=== PATIENT | male | born 1980 | race Caucasian/White ===

== ENCOUNTER 2017-09-08 10:45 | Emergency (ER) | payer BC ==
[2017-09-08 10:59] VITALS: BP 133/85; PULSE 82; TEMP 98.6; BMI 23.9
[2017-09-08] MEDS ORDERED: DIPHTH,PERTUSS(ACELL),TET 0.5 ML DISP.SYRIN IM ONE (11:11)
--- NOTE | 2017-09-08 11:11 | PDOC ---
History of Present Illness - General Chief Complaint: Injury Stated Complaint: LEFT 2ND FINGER INJURY W/ WOUND Time Seen by Provider: 09/08/17 11:03 - History of Present Illness Initial Comments: 09/08/17 11:55 Plan: Finger injury History of present illness: Patient cut his finger last night on his car. Sustained a transverse laceration on the radial aspect of the left index finger , just proximal to the DIPJ. Denies distal numbness tingling or limited motion of the fingertip. Review of systems: As above. In addition, no other injuries Past medical history: Healthy male, no significant medical or surgical problems past or present, no medications, no diabetes Social/family history reviewed and noncontributory Physical exam: Alert and oriented well-developed well-nourished no acute distress cooperative Afebrile, vital signs normal Left index finger: 1 cm transverse laceration as noted above. This involves the skin only, with no deep structures involved and no punctures. Sensation is intact to the distal pulp to 2 point discrimination. There is full extension against resistance, and full flexion of the DIP joint against resistance as well. Impression: Superficial laceration, old Plan: Debridement clean and dress watch for infection and follow-up as necessary Past History - Past Medical History Allergies/Adverse Reactions: Allergies Allergy/AdvReac Type Severity Reaction Status Date / Time bupropion HCl [From [facility]yban] Allergy Swelling Verified 09/08/17 10:48 Home Medications: Ambulatory Orders NK [No Known Home Medication] 09/08/17 Other medical history: DENIES - Suicide/Smoking/Psychosocial Hx Smoking History: Current every day smoker Have you smoked in the past 12 months: Yes Number of Cigarettes Smoked Daily: 1 Information on smoking cessation initiated: Yes 'Breaking Loose' booklet given: 09/08/17 Hx Alcohol Use: (occasional) Drug/Substance Use Hx: No Substance Use Type: None Hx Substance Use Treatment: No *Physical Exam - Vital Signs Last Vital Signs Temp Pulse Resp BP Pulse Ox 98.6 F 82 18 133/85 98 09/08/17 10:45 09/08/17 10:45 09/08/17 10:45 09/08/17 10:45 09/08/17 10:45 Medical Decision Making - Medical Decision Making 09/08/17 11:59 Procedure note: Debridement and laceration repair Digital block 1% lidocaine, good anesthesia Sharp debridement of the wound edges, black particulate matter removed. Thoroughly scrubbed and irrigated with saline. Bleeding controlled. Wound edges adequately approximated without sutures or Steri-Strips necessary Bacitracin, 2 x 2, tube gauze Wound care instructions Recheck if sign of infection Tetanus booster. *DC/Admit/Observation/Transfer Diagnosis at time of Disposition: Finger laceration Qualifiers: Encounter type: initial encounter Finger: index finger Damage to nail status: without damage Foreign body presence: without foreign body Laterality: left Qualified Code(s): S61.211A - Laceration without foreign body of left index finger without damage to nail, initial encounter - Discharge Dispostion Disposition: HOME Condition at time of disposition: Improved Admit: No - Patient Instructions Printed Discharge Instructions: DI for Laceration Repair -- Finger Additional Instructions: Recheck immediately if sign of infection. Otherwise dressed with bacitracin and keep covered until completely healed.
== END 2017-09-08 11:56 | disposition home or self-care (01) ==
LOC: FER 10:45
PROC: 3E0234Z Introduction of Serum, Toxoid and Vaccine into Muscle, Percutaneous Approach (ICD-10-PCS; principal; 2017-09-08)
DX: S61.211A Laceration without foreign body of left index finger without damage to nail, initial encounter (principal); W22.09XA Striking against other stationary object, initial encounter; Y93.89 Activity, other specified; Y92.89 Other specified places as the place of occurrence of the external cause
CPT/HCPCS: 90715; 99283-25

== ENCOUNTER 2018-10-09 06:59 | Emergency (ER) | payer BC ==
[2018-10-09 07:17] VITALS: BP 148/77; PULSE 88; TEMP 98.6; BMI 23.0
--- NOTE | 2018-10-09 07:37 | PDOC ---
History of Present Illness - General History Source: Patient Exam Limitations: No Limitations <Laurent Chavez - Last Filed: 10/09/18 07:37> <Nicho Bell - Last Filed: 10/09/18 15:56> - General Chief Complaint: Sore Throat Stated Complaint: WEAK, SORE THROAT Past History - Past Medical History COPD: No CHF: No - Immunization History Immunization Up to Date: Yes - Suicide/Smoking/Psychosocial Hx Smoking History: Current every day smoker Have you smoked in the past 12 months: Yes Number of Cigarettes Smoked Daily: 5 Information on smoking cessation initiated: No 'Breaking Loose' booklet given: 09/08/17 Hx Alcohol Use: No Drug/Substance Use Hx: No Substance Use Type: None Hx Substance Use Treatment: No <Laurent Chavez - Last Filed: 10/09/18 07:37> <Nicho Bell - Last Filed: 10/09/18 15:56> - Past Medical History Allergies/Adverse Reactions: Allergies Allergy/AdvReac Type Severity Reaction Status Date / Time bupropion HCl [From [facility]] Allergy Swelling Verified 09/08/17 10:48 Home Medications: Ambulatory Orders NK [No Known Home Medication] 09/08/17 *Physical Exam - Vital Signs Last Vital Signs Temp Pulse Resp BP Pulse Ox 98.6 F 88 15 148/77 99 10/09/18 07:16 10/09/18 07:16 10/09/18 07:16 10/09/18 07:16 10/09/18 07:16 <Laurent Chavez - Last Filed: 10/09/18 07:37> - Vital Signs Last Vital Signs Temp Pulse Resp BP Pulse Ox 98.6 F 88 15 148/77 99 10/09/18 07:16 10/09/18 07:16 10/09/18 07:16 10/09/18 07:16 10/09/18 08:32 <Nicho Bell - Last Filed: 10/09/18 15:56> *DC/Admit/Observation/Transfer <Laurent Chavez - Last Filed: 10/09/18 07:37> <Nicho Bell - Last Filed: 10/09/18 15:56> Diagnosis at time of Disposition: Influenza - Discharge Dispostion Disposition: HOME Condition at time of disposition: Stable - Referrals Referrals: Tee Lobo MD [Primary Care Provider] - - Patient Instructions Printed Discharge Instructions: Influenza Additional Instructions: Alternate Tylenol Motrin as needed for fever. Drink plenty of fluids. Try to stay away from other people especially young old immunocompromise. Call occupational health before returning to work. - Post Discharge Activity Forms/Work/School Notes: Back to Work
[2018-10-09 08:28] LABS: THROAT:GRP A STREP ANTIGEN Negative
--- NOTE | 2018-10-09 08:31 | PDOC ---
Attending Attestation - Resident Resident Name: Laurent Chavez - ED Attending Attestation I have performed the following: I have examined & evaluated the patient, The case was reviewed & discussed with the resident, I agree w/resident's findings & plan, Exceptions are as noted - HPI HPI: 10/09/18 15:16 Reviewed Residents HPI - Physicial Exam PE: 10/09/18 15:16 Reviewed Residents PE - Medical Decision Making 10/09/18 15:18 37 years old no significant past medical history presents with signs and symptoms of influenza-like illness. Well-appearing normal vital's tolerating by mouth Influenza positive. 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 Patient has had symptoms for greater than 48 hours is not candidate for Tamiflu Findings, the need for follow-up, strict return instructions discussed with patient.
== END 2018-10-09 09:14 | disposition home or self-care (01) ==
LOC: JER 06:59
DX: J10.1 Influenza due to other identified influenza virus with other respiratory manifestations (principal)
CPT/HCPCS: 87070; 87804; 87880; 99282-25

== ENCOUNTER 2021-11-02 06:08 | Day surgery (SDC) | payer OTHER ==
[2021-10-30 10:56] VITALS: BMI 24.4
[2021-11-02 10:37] VITALS: BP 149/85; PULSE 70; TEMP 97.7
== END 2021-11-02 10:36 | disposition home or self-care (01) ==
LOC: FASU 06:08
PROVIDERS: ATTEND Orthopaedic Surgery
PROC: 0SBC4ZZ Excision of Right Knee Joint, Percutaneous Endoscopic Approach (ICD-10-PCS; principal; 2021-11-02)
DX: S83.241A Other tear of medial meniscus, current injury, right knee, initial encounter (principal); X58.XXXA Exposure to other specified factors, initial encounter; Y93.9 Activity, unspecified; Y92.9 Unspecified place or not applicable
CPT/HCPCS: 88304-TC; 94760

== ENCOUNTER 2022-08-01 10:07 | Emergency (ER) | payer OTHER ==
[2022-08-01 10:27] VITALS: TEMP 98.9; BMI 24.4
[2022-08-01] MEDS ORDERED: KETOROLAC TROMETHAMINE 30 MG/1 ML VIAL IVPUSH ONE (10:35)
[2022-08-01] MEDS ORDERED: METHOCARBAMOL 500 MG TABLET PO ONE (10:36)
[2022-08-01] MEDS ORDERED: ALBUTEROL SO4 2.5/IPRATROPIUM 0.5 INH SOL 3 ML VIAL.NEB. NEB ONE ×2 (10:37→10:38)
[2022-08-01] MEDS ORDERED: METHOCARBAMOL 500 MG TABLET ONE (10:41)
[2022-08-01] MEDS ORDERED: KETOROLAC TROMETHAMINE 30 MG/1 ML VIAL ONE (10:41)
[2022-08-01 11:21] LABS: HEMATOCRIT 48.4 % (35.4-49); HEMOGLOBIN 17.1 G/dL (11.7-16.9); MCH 33.1 pg (25.7-33.7); MCHC 35.2 g/dl (32.0-35.9); MEAN CELL VOLUME 93.9 fl (80-96); MEAN PLT VOLUME 7.6 fl (7.5-11.1); PLATELET COUNT 252.7 10^3/uL (134-434); RBC 5.15 10^6/uL (4.00-5.60); RDW 13.7 % (11.9-15.9); WHITE BLOOD COUNT 12.8 10^3/uL (4.0-10.8)
[2022-08-01 11:23] LABS: PROTHROMBIN TIME (PATIENT) 11.5 SEC (9.7-13.0)
[2022-08-01 11:30] LABS: ALBUMIN 3.8 g/dl (3.4-5.0); BILIRUBIN,TOTAL 0.8 mg/dl (0.2-1); CALCIUM 9.4 mg/dl (8.5-10); CREATININE 0.8 mg/dl (0.55-1.3); TOT PROT 6.7 g/dl (6.4-8.2)
[2022-08-01 12:08] LABS: PLATELET ESTIMATE ADEQUATE
[2022-08-01 13:16] VITALS: BP 119/75; PULSE 84; RESP 18
== END 2022-08-01 13:42 | disposition home or self-care (01) ==
LOC: FER 10:07
PROC: 3E0F7GC Introduction of Other Therapeutic Substance into Respiratory Tract, Via Natural or Artificial Opening (ICD-10-PCS; principal; 2022-08-01)
PROC: 3E0333Z Introduction of Anti-inflammatory into Peripheral Vein, Percutaneous Approach (ICD-10-PCS; 2022-08-01)
DX: M62.830 Muscle spasm of back (principal); R07.89 Other chest pain; F17.200 Nicotine dependence, unspecified, uncomplicated
CPT/HCPCS: 36415; 71046-TC-FY; 80053; 84484; 85025; 85379; 85610; 85730; 93005; 99284-25

== ENCOUNTER 2022-09-22 08:56 | Emergency (ER) | payer OTHER ==
[2022-09-22 09:47] VITALS: BP 145/78; PULSE 84; RESP 16; TEMP 98.3; BMI 23.0
[2022-09-22] MEDS ORDERED: KETOROLAC TROMETHAMINE 30 MG/1 ML VIAL IM ONE (10:21)
[2022-09-22] MEDS ORDERED: LIDOCAINE 5% TOPICAL PATCH TP ONE (10:22)
[2022-09-22] MEDS ORDERED: KETOROLAC TROMETHAMINE 30 MG/1 ML VIAL ONE (10:40)
== END 2022-09-22 11:22 | disposition home or self-care (01) ==
LOC: JERFT 08:56
PROC: 3E0233Z Introduction of Anti-inflammatory into Muscle, Percutaneous Approach (ICD-10-PCS; principal; 2022-09-22)
DX: S46.911A Strain of unspecified muscle, fascia and tendon at shoulder and upper arm level, right arm, initial encounter (principal); X50.0XXA Overexertion from strenuous movement or load, initial encounter
CPT/HCPCS: 73030-TC-RT-FY; 99284-25

== ENCOUNTER 2023-03-10 10:11 | Emergency (ER) | payer OTHER ==
[2023-03-10 10:21] VITALS: BP 142/84; PULSE 77; RESP 17; TEMP 98.3; BMI 54.3
[2023-03-10] MEDS ORDERED: TETRACAINE 0.5% HCL 0.6ML DROPPER.BOTTLE OD ONE (11:22)
[2023-03-10] MEDS ORDERED: FLUORESCEIN NA 1 EA STRIP OD ONE (11:23)
[2023-03-10] MEDS ORDERED: FLUORESCEIN NA 1 EA STRIP ONE (11:24)
[2023-03-10] MEDS ORDERED: TETRACAINE 0.5% OPHTH SOLN 2 ML BOTTLE ONE (11:24)
== END 2023-03-10 11:54 | disposition home or self-care (01) ==
LOC: JER 10:11
DX: S05.02XA Injury of conjunctiva and corneal abrasion without foreign body, left eye, initial encounter (principal); W45.8XXA Other foreign body or object entering through skin, initial encounter
CPT/HCPCS: 99283-25

== ENCOUNTER 2023-04-28 07:41 | Emergency (ER) | payer OTHER ==
[2023-04-28 07:47] VITALS: BP 139/89; PULSE 97; RESP 18; TEMP 99.3; BMI 23.6
[2023-04-28] MEDS ORDERED: KETOROLAC TROMETHAMINE 60 MG/2 ML VIAL IM ONE (08:10)
[2023-04-28] MEDS ORDERED: KETOROLAC TROMETHAMINE 60 MG/2 ML VIAL ONE (08:59)
== END 2023-04-28 09:22 | disposition home or self-care (01) ==
LOC: FER 07:41
PROC: 3E0233Z Introduction of Anti-inflammatory into Muscle, Percutaneous Approach (ICD-10-PCS; principal; 2023-04-28)
DX: M25.551 Pain in right hip (principal); M70.71 Other bursitis of hip, right hip
CPT/HCPCS: 73502-TC-RT-FY; 99284-25